=== PATIENT | male | born 1955 | race African-American/Black ===

== ENCOUNTER 2020-05-09 23:09 | Inpatient (IN) | payer OTHER ==
[~2020-05-09] VITALS: Ht 190.5 cm; Wt 68.9 kg
[~2020-05-09 23:09] MED LIST: AMLO10TA80 PO; CEPH250C2 MT; MIRT15TA6 PO; OMEP20CA14 MT; PROP10TA10 MT
[2020-05-09] MEDS ORDERED: PANTOPRAZOLE SODIUM 40 MG/VIAL IV STA (23:25)
[2020-05-09] MEDS ORDERED: PANTOPRAZOLE 80 MG in SODIUM CHLORIDE 0.9% 100 ML IV STA (23:25)
[2020-05-09] MEDS ORDERED: ONDANSETRON HCL 4MG/2ML INJ IV STA (23:25)
[2020-05-09] MEDS ORDERED: OCTREOTIDE ACETATE 50 MCG/ML 1ML IV STA (23:25)
[2020-05-09] MEDS ORDERED: OCTREOTIDE 1,000 MCG in SODIUM CHLORIDE 0.9% 100 ML IV STA (23:25)
[2020-05-09] MEDS ORDERED: SODIUM CHLORIDE 0.9% 1,000 ML IV ONE (23:30)
[2020-05-10] VITALS (33 sets, daily range): BP systolic 99–139; BP diastolic 52–80
[2020-05-10 00:25] LABS: INR 1.2; PROTHROMBIN TIME 12.7 sec (9.6-11.0)
[2020-05-10 00:29] LABS: CHLORIDE 109 mEq/L (98-107)
[2020-05-10] MEDS ORDERED: CEFTRIAXONE 1 G PREMIX 50 ML IV ONE (00:30)
[2020-05-10] MEDS ORDERED: SODIUM CHLORIDE 0.9% 1000ML BAG (SEPSIS BOLUS) IV ONE (00:30)
[2020-05-10] MEDS ORDERED: AZITHROMYCIN 500 MG in DEXT 5% WATER 250 ML IV ONE (00:30)
[2020-05-10 00:33] LABS: ETHANOL BLOOD < 10 mg/dL
[2020-05-10 01:01] LABS: BASOPHILS % 0.7 % (0.0-2.0); EOSINOPHILS % 0.8 % (0.0-5.0); LYMPHOCYTES % 22.7 % (20.0-50.0); MEAN CORPUSCULAR HEMOGLOBIN 23.4 pg (28.0-32.0); MEAN CORPUSCULAR VOLUME 81.7 fL (80.0-94.0); MEAN PLATELET VOLUME 7.9 fl (7.4-10.4); NEUTROPHILS % 64.8 % (40.0-76.0); PLATELET 354 x1000/uL (130-400); RED BLOOD CELL COUNT 1.21 mill/uL (4.7-6.1); RED CELL DISTRIBUTION WIDTH 24.9 % (11.6-14.6)
[2020-05-10 01:04] LABS: HEMOGLOBIN. 2.8 g/dL (14.0-18.0)
[2020-05-10 01:05] LABS: HEMATOCRIT. 9.9 % (42.0-52.0)
[2020-05-10 01:22] LABS: BASOPHILS % 0.2 % (0.0-2.0); EOSINOPHILS % 0.1 % (0.0-5.0); LYMPHOCYTES % 11.7 % (20.0-50.0); MEAN CORPUSCULAR VOLUME 81.1 fL (80.0-94.0); MEAN PLATELET VOLUME 7.1 fl (7.4-10.4); MONOCYTES % 9.8 % (2.0-8.0); NEUTROPHILS % 78.2 % (40.0-76.0); PLATELET 344 x1000/uL (130-400); RED BLOOD CELL COUNT 1.12 mill/uL (4.7-6.1); RED CELL DISTRIBUTION WIDTH 24.6 % (11.6-14.6)
[2020-05-10 01:25] LABS: HEMATOCRIT. 9.1 % (42.0-52.0); HEMOGLOBIN. 2.6 g/dL (14.0-18.0)
[2020-05-10 01:40] LABS: C REACTIVE PROTEIN QUANT 8.1 mg/L (0.0-3.0)
[2020-05-10 02:12] LABS: *AMPHETAMINES SCREEN URINE NEGATIVE (NEGATIVE); *BARBITURATES SCREEN URINE NEGATIVE (NEGATIVE); *BENZODIAZEPINES SCREEN URINE NEGATIVE (NEGATIVE); *COCAINE SCREEN URINE NEGATIVE (NEGATIVE)
[2020-05-10 02:13] LABS: CANNABINOID URINE SCREEN NEGATIVE (NEGATIVE); METHADONE URINE SCREEN NEGATIVE (NEGATIVE); OPIATES URINE SCREEN NEGATIVE (NEGATIVE); PHENCYCLIDINE URINE SCREEN NEGATIVE (NEGATIVE)
[2020-05-10 05:48] LABS: PLATELET ESTIMATE NORMAL
[2020-05-10] MEDS ORDERED: ONDANSETRON HCL 4MG/2ML INJ IV PRN (08:45)
[2020-05-10] MEDS ORDERED: CEFEPIME 1,000 MG in DEXTROSE 5% WATER 50 ML IV SCH (08:45)
[2020-05-10] MEDS ORDERED: METRONIDAZOLE 500 MG PREMIX 100 ML IV SCH (10:00)
[2020-05-10 10:44] LABS: CHLORIDE 112 mEq/L (98-107)
[2020-05-10] MEDS: CEFEPIME 1,000 MG in DEXTROSE 5% WATER 50 ML IV SCH (10:46)
[2020-05-10] MEDS: SODIUM CHLORIDE 0.45% 1,000 ML IV SCH ×2 (10:46→22:17)
[2020-05-10] MEDS ORDERED: THIAMINE HCL 100 MG in SODIUM CHLORIDE 0.9% 49 ML IV SCH (14:45)
[2020-05-10 15:07] LABS: HEMATOCRIT 25.6 % (42.0-52.0); HEMOGLOBIN 8.3 g/dL (14.0-18.0)
[2020-05-10 15:10] LABS: INR 1.1; PROTHROMBIN TIME 11.9 sec (9.6-11.0)
[2020-05-10] MEDS ORDERED: DIPHENHYDRAMINE 50MG/ML VIAL ONE (15:47)
[2020-05-10] MEDS ORDERED: MIDAZOLAM HCL 2 MG/2 ML VIAL ONE ×2 (15:47→16:05)
[2020-05-10] MEDS ORDERED: FENTANYL CITRATE/PF 50MCG/ML 2ML VIAL ONE (15:47)
[2020-05-10 16:36] LABS: CLARITY URINE CLEAR (CLEAR); COLOR URINE YELLOW (YELLOW); KETONES URINE NEGATIVE (NEGATIVE); LEUKOCYTE ESTERASE URINE 2+ (NEGATIVE); NITRITE URINE NEGATIVE (NEGATIVE); OCCULT BLOOD URINE 2+ (NEGATIVE); PH URINE 7.5 (4.5-8.0); PROTEIN URINE NEGATIVE (NEGATIVE); SPECIFIC GRAVITY URINE 1.015 (1.005-1.030); UROBILINOGEN URINE 0.2 E.U./dL (0.2-1.0)
[2020-05-10] MEDS: SUCRALFATE 1 G/10 ML UDC PO SCH (18:47)
[2020-05-10] MEDS: METRONIDAZOLE 500 MG PREMIX 100 ML IV SCH (18:48)
[2020-05-10] MEDS ORDERED: VANCOMYCIN 1250MG in DEXTROSE 5% WATER 250ML IV NR (19:30)
[2020-05-10] MEDS: PANTOPRAZOLE SODIUM 40 MG/VIAL IV SCH (20:01)
[2020-05-11] VITALS (64 sets, daily range): BP systolic 119–156; BP diastolic 60–88
[2020-05-11 00:03] LABS: HEMATOCRIT 26.8 % (42.0-52.0); HEMOGLOBIN 8.5 g/dL (14.0-18.0)
[2020-05-11] MEDS: SUCRALFATE 1 G/10 ML UDC PO SCH ×4 (00:57→17:25)
[2020-05-11] MEDS: METRONIDAZOLE 500 MG PREMIX 100 ML IV SCH ×3 (02:57→17:25)
[2020-05-11 05:17] LABS: CHLORIDE 110 mEq/L (98-107)
[2020-05-11 05:26] LABS: BASOPHILS % 0.5 % (0.0-2.0); EOSINOPHILS % 1.9 % (0.0-5.0); HEMATOCRIT. 26.5 % (42.0-52.0); HEMOGLOBIN. 8.5 g/dL (14.0-18.0); LYMPHOCYTES % 8.8 % (20.0-50.0); MEAN CORPUSCULAR VOLUME 83.6 fL (80.0-94.0); MEAN PLATELET VOLUME 7.1 fl (7.4-10.4); MONOCYTES % 9.4 % (2.0-8.0); NEUTROPHILS % 79.4 % (40.0-76.0); PLATELET 125 x1000/uL (130-400); RED BLOOD CELL COUNT 3.17 mill/uL (4.7-6.1); RED CELL DISTRIBUTION WIDTH 18.8 % (11.6-14.6)
[2020-05-11 05:36] LABS: PHOSPHORUS 2.6 mg/dL (2.5-4.9)
[2020-05-11 05:42] LABS: TOTAL IRON BINDING CAPACITY 350 ug/dL (250-450)
[2020-05-11 06:10] LABS: PROTHROMBIN TIME 11.1 sec (9.6-11.0)
[2020-05-11] MEDS ORDERED: VANCOMYCIN 750 MG PREMIX 150 ML IV SCH (09:00)
[2020-05-11] MEDS: PANTOPRAZOLE SODIUM 40 MG/VIAL IV SCH ×2 (09:15→20:05)
[2020-05-11] MEDS: CEFEPIME 1,000 MG in DEXTROSE 5% WATER 50 ML IV SCH (09:15)
[2020-05-11] MEDS: VANCOMYCIN 1 G PREMIX 200 ML IV SCH ×2 (09:16→20:05)
[2020-05-11] MEDS: SODIUM CHLORIDE 0.45% 1,000 ML IV SCH ×2 (10:57→23:06)
[2020-05-11] MEDS ORDERED: IRON SUCROSE COMPLEX 100 MG/5 ML ML IV SCH (14:30)
[2020-05-11] MEDS ORDERED: THIAMINE HCL 100 MG in SODIUM CHLORIDE 0.9% 49 ML IV SCH (15:30)
[2020-05-11] MEDS: OCTREOTIDE 1,000 MCG in SODIUM CHLORIDE 0.9% 98 ML IV SCH (15:39)
[2020-05-11] MEDS: LINEZOLID 600 MG PREMIX 300 ML IV SCH (22:37)
[2020-05-12] VITALS (9 sets, daily range): BP systolic 117–145; BP diastolic 59–72
[2020-05-12] MEDS: SUCRALFATE 1 G/10 ML UDC PO SCH ×3 (00:07→12:44)
[2020-05-12] MEDS: METRONIDAZOLE 500 MG PREMIX 100 ML IV SCH ×2 (02:04→09:44)
[2020-05-12 06:33] LABS: BASOPHILS % 0.9 % (0.0-2.0); EOSINOPHILS % 4.8 % (0.0-5.0); HEMOGLOBIN. 8.3 g/dL (14.0-18.0); LYMPHOCYTES % 12.7 % (20.0-50.0); MEAN CORPUSCULAR HEMOGLOBIN 27.5 pg (28.0-32.0); MEAN CORPUSCULAR VOLUME 83.1 fL (80.0-94.0); MEAN PLATELET VOLUME 6.6 fl (7.4-10.4); MONOCYTES % 10.9 % (2.0-8.0); NEUTROPHILS % 70.7 % (40.0-76.0); PLATELET 89 x1000/uL (130-400); RED BLOOD CELL COUNT 3.01 mill/uL (4.7-6.1); RED CELL DISTRIBUTION WIDTH 18.4 % (11.6-14.6)
[2020-05-12 06:41] LABS: CHLORIDE 111 mEq/L (98-107)
[2020-05-12] MEDS: LINEZOLID 600 MG PREMIX 300 ML IV SCH (09:13)
[2020-05-12] MEDS: PANTOPRAZOLE SODIUM 40 MG/VIAL IV SCH (09:14)
[2020-05-12] MEDS: CEFEPIME 1,000 MG in DEXTROSE 5% WATER 50 ML IV SCH (09:14)
[2020-05-12] MEDS ORDERED: OMEP20CA14 MT (11:21)
[2020-05-12] MEDS ORDERED: PROP10TA10 MT (11:21)
[2020-05-12] MEDS ORDERED: SUCR1ORA15 PO (11:21)
[2020-05-12] MEDS: OCTREOTIDE 1,000 MCG in SODIUM CHLORIDE 0.9% 98 ML IV SCH (12:17)
== END 2020-05-12 15:15 | disposition home or self-care (01) | DRG 720 ==
LOC: ER 23:09 → MICUSO 05-10 01:19 → EDBEDREQTM 05-10 01:23 → EDBEDREQDT 05-10 01:23 → EDBEDREQ 05-10 01:23 → UNDOADMIN 05-10 04:10 → MICUNO 05-10 04:10 → ENRESERV 05-10 11:18 → 5EST 05-11 23:20
PROVIDERS: ADMIT Internal Medicine; ATTEND Internal Medicine
PROC: 0DB98ZX Excision of Duodenum, Via Natural or Artificial Opening Endoscopic, Diagnostic (ICD-10-PCS; principal; 2020-05-10)
PROC: 0DB78ZX Excision of Stomach, Pylorus, Via Natural or Artificial Opening Endoscopic, Diagnostic (ICD-10-PCS; 2020-05-10)
PROC: 30233N1 Transfusion of Nonautologous Red Blood Cells into Peripheral Vein, Percutaneous Approach (ICD-10-PCS; 2020-05-10)
PROC: 06L38CZ Occlusion of Esophageal Vein with Extraluminal Device, Via Natural or Artificial Opening Endoscopic (ICD-10-PCS; 2020-05-10)
DX: A41.9 Sepsis, unspecified organism (principal); E43 Unspecified severe protein-calorie malnutrition; N17.0 Acute kidney failure with tubular necrosis; K85.90 Acute pancreatitis without necrosis or infection, unspecified; R18.8 Other ascites; R57.8 Other shock; D50.0 Iron deficiency anemia secondary to blood loss (chronic); E87.2 Acidosis; E87.8 Other disorders of electrolyte and fluid balance, not elsewhere classified; K29.70 Gastritis, unspecified, without bleeding; K31.89 Other diseases of stomach and duodenum; K74.60 Unspecified cirrhosis of liver; K76.6 Portal hypertension; J18.9 Pneumonia, unspecified organism; F10.10 Alcohol abuse, uncomplicated; Y90.9 Presence of alcohol in blood, level not specified; Z20.822 Contact with and (suspected) exposure to COVID-19; K76.0 Fatty (change of) liver, not elsewhere classified; K44.9 Diaphragmatic hernia without obstruction or gangrene; N39.0 Urinary tract infection, site not specified; I85.11 Secondary esophageal varices with bleeding; K70.9 Alcoholic liver disease, unspecified; K83.1 Obstruction of bile duct; Z68.1 Body mass index [BMI] 19.9 or less, adult; Z96.642 Presence of left artificial hip joint; Z87.891 Personal history of nicotine dependence
CPT/HCPCS: 36415; 71045; 80048; 80053; 80202; 80305; 80320; 81003; 82140; 82378; 82607; 82728; 82746; 83540; 83550; 83605; 83615; 83735; 83880; 84100; 84145; 84484; 85014; 85018; 85025; 85044; 86140; 86301; 86850; 86900; 86920; 87077; 87186; 87426; 88305; 88313; 93005; 96365; 99291; C9113; J0456; J0692; J0696; J1200; J2020; J2250; J2354; J2405; J3010; J3370; J3411; J3490; J7030; J7050; J7060; P9016; U0003; G0480

== ENCOUNTER 2020-12-29 22:04 | Inpatient (IN) | payer OTHER ==
[~2020-12-29] VITALS: Ht 190.5 cm; Wt 72.6 kg
[~2020-12-29 22:04] MED LIST changes: -CEPH250C2 MT; +MIRT-89 PO; -MIRT15TA6 PO; +SUCR1ORA15 PO
[2020-12-29] MEDS ORDERED: ONDANSETRON HCL 4MG/2ML INJ IV STA (22:20)
[2020-12-29] MEDS ORDERED: SODIUM CHLORIDE 0.9% 1,000 ML IV ONE (22:30)
[2020-12-29 22:58] LABS: BASOPHILS % 0.8 % (0.0-2.0); EOSINOPHILS % 1.7 % (0.0-5.0); LYMPHOCYTES % 19.2 % (20.0-50.0); MEAN CORPUSCULAR HEMOGLOBIN 22.9 pg (28.0-32.0); MEAN CORPUSCULAR VOLUME 75.3 fL (80.0-94.0); MEAN PLATELET VOLUME 6.6 fl (7.4-10.4); MONOCYTES % 10.8 % (2.0-8.0); NEUTROPHILS % 67.5 % (40.0-76.0); PLATELET 266 x1000/uL (130-400); RED BLOOD CELL COUNT 2.47 mill/uL (4.7-6.1); RED CELL DISTRIBUTION WIDTH 27.3 % (11.6-14.6)
[2020-12-29 23:01] LABS: CLARITY URINE CLEAR (CLEAR); COLOR URINE YELLOW (YELLOW); HEMATOCRIT. 18.6 % (42.0-52.0); HEMOGLOBIN. 5.7 g/dL (14.0-18.0); KETONES URINE NEGATIVE (NEGATIVE); LEUKOCYTE ESTERASE URINE 1+ (NEGATIVE); NITRITE URINE NEGATIVE (NEGATIVE); OCCULT BLOOD URINE 1+ (NEGATIVE); PROTEIN URINE NEGATIVE (NEGATIVE); SPECIFIC GRAVITY URINE 1.017 (1.005-1.030)
[2020-12-29 23:03] LABS: CHLORIDE 108 mEq/L (98-107)
[2020-12-29 23:05] LABS: INR 1.1; PROTHROMBIN TIME 11.8 sec (9.6-11.0)
[2020-12-29 23:07] LABS: ETHANOL BLOOD < 10 mg/dL
[2020-12-29 23:10] LABS: *AMPHETAMINES SCREEN URINE NEGATIVE (NEGATIVE); *BARBITURATES SCREEN URINE NEGATIVE (NEGATIVE); *BENZODIAZEPINES SCREEN URINE NEGATIVE (NEGATIVE); *COCAINE SCREEN URINE NEGATIVE (NEGATIVE)
[2020-12-29 23:11] LABS: CANNABINOID URINE SCREEN NEGATIVE (NEGATIVE); METHADONE URINE SCREEN NEGATIVE (NEGATIVE); OPIATES URINE SCREEN NEGATIVE (NEGATIVE); PHENCYCLIDINE URINE SCREEN NEGATIVE (NEGATIVE)
[2020-12-29 23:18] LABS: PLATELET ESTIMATE NORMAL
[2020-12-30] VITALS (27 sets, daily range): BP systolic 101–149; BP diastolic 29–83
[2020-12-30] MEDS ORDERED: PANTOPRAZOLE SODIUM 40 MG/VIAL IV ONE (01:45)
[2020-12-30] MEDS ORDERED: SODIUM CHLORIDE 0.9% 2,000 ML IV NR (03:00)
[2020-12-30] MEDS ORDERED: SODIUM CHLORIDE 0.9% 1,000 ML IV NR (05:15)
[2020-12-30 07:03] LABS: BASOPHILS % 0.3 % (0.0-2.0); EOSINOPHILS % 0.1 % (0.0-5.0); LYMPHOCYTES % 7.1 % (20.0-50.0); MEAN CORPUSCULAR HEMOGLOBIN 26.6 pg (28.0-32.0); MEAN CORPUSCULAR VOLUME 86.3 fL (80.0-94.0); MEAN PLATELET VOLUME 7.2 fl (7.4-10.4); MONOCYTES % 7.9 % (2.0-8.0); NEUTROPHILS % 84.6 % (40.0-76.0); PLATELET 217 x1000/uL (130-400); RED BLOOD CELL COUNT 1.69 mill/uL (4.7-6.1); RED CELL DISTRIBUTION WIDTH 23.1 % (11.6-14.6)
[2020-12-30 07:05] LABS: CHLORIDE 120 mEq/L (98-107)
[2020-12-30 07:10] LABS: HEMATOCRIT. 14.6 % (42.0-52.0); HEMOGLOBIN. 4.5 g/dL (14.0-18.0)
[2020-12-30] MEDS ORDERED: CALCIUM GLUCONATE 100MG/ML 10ML VIAL IV ONE (07:15)
[2020-12-30] MEDS ORDERED: NOREPINEPHRINE 8 MG in DEXT 5% WATER 242 ML IV PRN (08:00)
[2020-12-30] MEDS: NOREPINEPHRINE 8 MG in DEXT 5% WATER 242 ML IV PRN ×2 (08:58→09:13)
[2020-12-30] MEDS ORDERED: OCTREOTIDE 1,000 MCG in SODIUM CHLORIDE 0.9% 100 ML IV SCH ×2 (10:00→10:45)
[2020-12-30] MEDS ORDERED: DEXTROSE 50% WATER 50ML SYRINGE IV PRN ×2 (10:00)
[2020-12-30] MEDS ORDERED: ONDANSETRON HCL 4MG/2ML INJ IV PRN (10:00)
[2020-12-30] MEDS ORDERED: PANTOPRAZOLE SODIUM 40 MG/VIAL IV SCH (11:00)
[2020-12-30] MEDS ORDERED: OCTREOTIDE ACETATE 50 MCG/ML 1ML IV NR (11:00)
[2020-12-30 12:00] LABS: TOTAL IRON BINDING CAPACITY 177 ug/dL (250-450)
[2020-12-30] MEDS: THIAMINE HCL 200 MG in SODIUM CHLORIDE 0.9% 100 ML IV SCH (12:01)
[2020-12-30] MEDS: BLOOD SUGAR DIAGNOSTIC STRIP TEST SCH ×3 (12:05→21:00)
[2020-12-30] MEDS: INSULIN LISPRO 100 UNITS/ML SUBCUT SCH ×3 (12:06→21:00)
[2020-12-30 12:29] LABS: VITAMIN B12 SERUM 283 pg/mL (211-911)
[2020-12-30 12:39] LABS: FERRITIN < 5 ng/mL (22-322)
[2020-12-30] MEDS: MORPHINE SULFATE 2 MG/ML CPJ (NOT FOR IM USE) IV PRN ×2 (15:13→20:16)
[2020-12-30] MEDS: PANTOPRAZOLE SODIUM 40 MG/VIAL IV SCH (17:13)
[2020-12-30 19:41] LABS: HEMATOCRIT. 25.3 % (42.0-52.0); HEMOGLOBIN. 8.2 g/dL (14.0-18.0); MEAN CORPUSCULAR HEMOGLOBIN 27.8 pg (28.0-32.0); MEAN CORPUSCULAR VOLUME 85.3 fL (80.0-94.0); MEAN PLATELET VOLUME 7.2 fl (7.4-10.4); PLATELET 184 x1000/uL (130-400); RED BLOOD CELL COUNT 2.96 mill/uL (4.7-6.1); RED CELL DISTRIBUTION WIDTH 16.2 % (11.6-14.6)
[2020-12-30 20:27] LABS: PLATELET ESTIMATE NORMAL
[2020-12-30] MEDS ORDERED: CEFTRIAXONE 1 G PREMIX 50 ML IV SCH (21:15)
[2020-12-30 22:19] LABS: CHLORIDE 120 mEq/L (98-107)
[2020-12-30] MEDS ORDERED: CEFTRIAXONE 1,000 MG in DEXTROSE 5% WATER 50 ML IV SCH (22:30)
[2020-12-31] VITALS (29 sets, daily range): BP systolic 98–133; BP diastolic 53–81
[2020-12-31] MEDS: MORPHINE SULFATE 2 MG/ML CPJ (NOT FOR IM USE) IV PRN (02:06)
[2020-12-31 06:32] LABS: HEMATOCRIT. 23.5 % (42.0-52.0); HEMOGLOBIN. 7.6 g/dL (14.0-18.0); MEAN CORPUSCULAR VOLUME 86.8 fL (80.0-94.0); MEAN PLATELET VOLUME 7.5 fl (7.4-10.4); PLATELET 160 x1000/uL (130-400); RED CELL DISTRIBUTION WIDTH 16.8 % (11.6-14.6)
[2020-12-31 06:40] LABS: PHOSPHORUS 3.9 mg/dL (2.5-4.9)
[2020-12-31] MEDS: INSULIN LISPRO 100 UNITS/ML SUBCUT SCH ×4 (06:40→21:00)
[2020-12-31] MEDS: BLOOD SUGAR DIAGNOSTIC STRIP TEST SCH ×4 (06:40→21:32)
[2020-12-31 06:41] LABS: T4 FREE 0.87 ng/dL (0.76-1.46)
[2020-12-31 07:19] LABS: INR 1.1; PROTHROMBIN TIME 12.1 sec (9.6-11.0)
[2020-12-31] MEDS: PANTOPRAZOLE SODIUM 40 MG/VIAL IV SCH ×2 (08:31→19:20)
[2020-12-31] MEDS ORDERED: SODIUM POLYSTYRENE SULFONATE 15 G/60 ML BOT PO ONE (11:15)
[2020-12-31] MEDS ORDERED: ALBUTEROL (0.083%) 2.5MG/3ML NEB HHN NR (11:15)
[2020-12-31] MEDS ORDERED: ETOMIDATE 2MG/ML 10ML VIAL IV ONE (11:28)
[2020-12-31] MEDS ORDERED: MIDAZOLAM HCL 2 MG/2 ML VIAL ONE (11:28)
[2020-12-31] MEDS ORDERED: PROPOFOL 200MG/20ML VIAL IV ONE (11:29)
[2020-12-31] MEDS ORDERED: LIDOCAINE HCL/PF 1% 10 MG/ML 5ML VIAL ONE (11:31)
[2020-12-31] MEDS: DEXTROSE 5% WATER 1,000 ML IV SCH (12:08)
[2020-12-31] MEDS: THIAMINE HCL 200 MG in SODIUM CHLORIDE 0.9% 100 ML IV SCH (12:09)
[2020-12-31] MEDS ORDERED: SODIUM POLYSTYRENE SULFONATE 15 G/60 ML BOT PO NR ×2 (13:00)
[2020-12-31] MEDS ORDERED: MAGNESIUM 1 G PREMIX 100 ML IV SCH (13:00)
[2020-12-31] MEDS ORDERED: VANCOMYCIN 1500MG in DEXTROSE 5% WATER 250ML IV SCH (13:00)
[2020-12-31] MEDS: PIPERACILLIN/TAZOBACTAM 3.375 G in DEXTROSE 5% WATER 50 ML IV SCH ×2 (13:49→22:43)
[2020-12-31] MEDS: SUCRALFATE 1G TABLET PO SCH ×3 (13:49→21:32)
[2020-12-31] MEDS: CITRIC ACID/SODIUM CITRATE SOLN 30ML UDC PO SCH ×2 (13:49→19:20)
[2020-12-31 17:35] LABS: HEMATOCRIT 22.8 % (42.0-52.0); HEMOGLOBIN 7.1 g/dL (14.0-18.0); MEAN CORPUSCULAR HEMOGLOBIN 27.7 pg (28.0-32.0); MEAN CORPUSCULAR VOLUME 88.4 fL (80.0-94.0); PLATELET 155 x1000/uL (130-400); RED BLOOD CELL COUNT 2.57 mill/uL (4.7-6.1); RED CELL DISTRIBUTION WIDTH 17.3 % (11.6-14.6)
[2020-12-31 17:48] LABS: CHLORIDE 124 mEq/L (98-107)
[2020-12-31 17:53] LABS: AMYLASE 92 IU/L (25-115)
[2020-12-31 17:56] LABS: CREATINE KINASE 411 IU/L (39-308)
[2021-01-01] VITALS: BP 120/60
[2021-01-01 01:25] LABS: PLATELET ESTIMATE NORMAL
[2021-01-01 02:29] LABS: HEMATOCRIT 25.1 % (42.0-52.0); HEMOGLOBIN 8.3 g/dL (14.0-18.0)
[2021-01-01 04:00] VITALS: BP 108/56
[2021-01-01] MEDS: DEXTROSE 5% WATER 1,000 ML IV SCH ×2 (04:36→20:35)
[2021-01-01] MEDS: PIPERACILLIN/TAZOBACTAM 3.375 G in DEXTROSE 5% WATER 50 ML IV SCH ×3 (05:36→21:26)
[2021-01-01 05:42] LABS: BASOPHILS % 0.6 % (0.0-2.0); EOSINOPHILS % 1.7 % (0.0-5.0); HEMATOCRIT. 24.2 % (42.0-52.0); HEMOGLOBIN. 8.1 g/dL (14.0-18.0); LYMPHOCYTES % 7.1 % (20.0-50.0); MEAN CORPUSCULAR HEMOGLOBIN 29.2 pg (28.0-32.0); MEAN CORPUSCULAR VOLUME 87.3 fL (80.0-94.0); MEAN PLATELET VOLUME 7.2 fl (7.4-10.4); MONOCYTES % 8.4 % (2.0-8.0); NEUTROPHILS % 82.2 % (40.0-76.0); PLATELET 100 x1000/uL (130-400); RED BLOOD CELL COUNT 2.77 mill/uL (4.7-6.1); RED CELL DISTRIBUTION WIDTH 16.2 % (11.6-14.6)
[2021-01-01] MEDS: BLOOD SUGAR DIAGNOSTIC STRIP TEST SCH ×4 (06:53→21:23)
[2021-01-01] MEDS: INSULIN LISPRO 100 UNITS/ML SUBCUT SCH ×4 (06:53→21:00)
[2021-01-01 08:00] VITALS: BP 115/58
[2021-01-01] MEDS: CITRIC ACID/SODIUM CITRATE SOLN 30ML UDC PO SCH ×3 (10:17→17:22)
[2021-01-01] MEDS: PANTOPRAZOLE SODIUM 40 MG/VIAL IV SCH ×2 (10:17→17:00)
[2021-01-01] MEDS: VANCOMYCIN 1 G PREMIX 200 ML IV SCH (10:19)
[2021-01-01] MEDS: SUCRALFATE 1G TABLET PO SCH ×4 (10:21→21:26)
[2021-01-01 12:00] VITALS: BP 99/60
[2021-01-01] MEDS: THIAMINE HCL 200 MG in SODIUM CHLORIDE 0.9% 100 ML IV SCH (12:22)
[2021-01-01 16:00] VITALS: BP 125/62
[2021-01-01 20:00] VITALS: BP 124/60
[2021-01-02] VITALS: BP 109/55
[2021-01-02 04:00] VITALS: BP 131/60
[2021-01-02] MEDS: PIPERACILLIN/TAZOBACTAM 3.375 G in DEXTROSE 5% WATER 50 ML IV SCH (05:34)
[2021-01-02] MEDS: BLOOD SUGAR DIAGNOSTIC STRIP TEST SCH ×4 (07:22→21:37)
[2021-01-02] MEDS: INSULIN LISPRO 100 UNITS/ML SUBCUT SCH ×4 (07:50→21:00)
[2021-01-02 08:00] VITALS: BP 106/53
[2021-01-02] MEDS: CITRIC ACID/SODIUM CITRATE SOLN 30ML UDC PO SCH ×3 (09:18→16:22)
[2021-01-02] MEDS: VANCOMYCIN 1 G PREMIX 200 ML IV SCH (09:18)
[2021-01-02] MEDS: SUCRALFATE 1G TABLET PO SCH ×4 (09:18→21:38)
[2021-01-02] MEDS: PANTOPRAZOLE SODIUM 40 MG/VIAL IV SCH ×2 (09:18→16:22)
[2021-01-02 12:00] VITALS: BP 115/62
[2021-01-02] MEDS: DEXTROSE 5% WATER 1,000 ML IV SCH (13:55)
[2021-01-02] MEDS: THIAMINE HCL 200 MG in SODIUM CHLORIDE 0.9% 100 ML IV SCH (13:55)
[2021-01-02 16:00] VITALS: BP 133/60
[2021-01-02] MEDS: CEFTRIAXONE 2 G in DEXTROSE 5% WATER 50 ML IV SCH (16:22)
[2021-01-02 20:00] VITALS: BP 123/57
[2021-01-02] MEDS ORDERED: VANCOMYCIN 1 G PREMIX 200 ML IV SCH (21:00)
[2021-01-03] VITALS: BP 142/61
[2021-01-03 04:20] VITALS: BP 128/61
[2021-01-03] MEDS: DEXTROSE 5% WATER 1,000 ML IV SCH (06:29)
[2021-01-03 06:31] LABS: CHLORIDE 115 mEq/L (98-107)
[2021-01-03] MEDS: INSULIN LISPRO 100 UNITS/ML SUBCUT SCH ×2 (06:55→12:40)
[2021-01-03] MEDS: BLOOD SUGAR DIAGNOSTIC STRIP TEST SCH ×3 (06:58→17:25)
[2021-01-03 08:00] VITALS: BP 124/62
[2021-01-03 08:07] LABS: ANTI-NUCLEAR ANTIBODIES DIRECT Negative (Negative)
[2021-01-03] MEDS: CITRIC ACID/SODIUM CITRATE SOLN 30ML UDC PO SCH ×3 (09:05→17:25)
[2021-01-03] MEDS: PANTOPRAZOLE SODIUM 40 MG/VIAL IV SCH ×2 (09:06→17:25)
[2021-01-03] MEDS: SUCRALFATE 1G TABLET PO SCH ×3 (09:06→17:25)
[2021-01-03 12:08] VITALS: BP 128/66
[2021-01-03] MEDS: THIAMINE HCL 200 MG in SODIUM CHLORIDE 0.9% 100 ML IV SCH (12:41)
[2021-01-03] MEDS ORDERED: CITR473S PO (13:50)
[2021-01-03] MEDS ORDERED: LEVO750T46 MT (15:02)
[2021-01-03] MEDS: CEFTRIAXONE 2 G in DEXTROSE 5% WATER 50 ML IV SCH (15:50)
[2021-01-03 16:05] VITALS: BP 140/70
[2021-01-03 16:59] VITALS: BP 140/70
== END 2021-01-03 18:20 | disposition home or self-care (01) | DRG 720 ==
LOC: ER 22:04 → MICUNO 12-30 00:44 → CANRESERV 12-30 07:13 → ENRESERV 12-30 07:13 → EDBEDREQSVC 12-30 08:03 → ENRESERV 12-30 13:45 → 6WST 12-31 14:45
PROVIDERS: ADMIT Internal Medicine; ATTEND Internal Medicine
PROC: 30233N1 Transfusion of Nonautologous Red Blood Cells into Peripheral Vein, Percutaneous Approach (ICD-10-PCS; 2020-12-30)
PROC: 0DB78ZX Excision of Stomach, Pylorus, Via Natural or Artificial Opening Endoscopic, Diagnostic (ICD-10-PCS; principal; 2020-12-31)
DX: A41.51 Sepsis due to Escherichia coli [E. coli] (principal); N17.0 Acute kidney failure with tubular necrosis; R57.8 Other shock; E43 Unspecified severe protein-calorie malnutrition; K22.11 Ulcer of esophagus with bleeding; K26.4 Chronic or unspecified duodenal ulcer with hemorrhage; Q25.72 Congenital pulmonary arteriovenous malformation; K29.71 Gastritis, unspecified, with bleeding; E87.0 Hyperosmolality and hypernatremia; K70.31 Alcoholic cirrhosis of liver with ascites; K76.6 Portal hypertension; D64.9 Anemia, unspecified; E83.42 Hypomagnesemia; E87.5 Hyperkalemia; E87.8 Other disorders of electrolyte and fluid balance, not elsewhere classified; F10.10 Alcohol abuse, uncomplicated; I10 Essential (primary) hypertension; K31.89 Other diseases of stomach and duodenum; K44.9 Diaphragmatic hernia without obstruction or gangrene; K57.30 Diverticulosis of large intestine without perforation or abscess without bleeding; K76.0 Fatty (change of) liver, not elsewhere classified; K83.8 Other specified diseases of biliary tract; K86.1 Other chronic pancreatitis; N39.0 Urinary tract infection, site not specified; Z96.643 Presence of artificial hip joint, bilateral; R11.2 Nausea with vomiting, unspecified; Y90.9 Presence of alcohol in blood, level not specified; Z20.822 Contact with and (suspected) exposure to COVID-19; I85.00 Esophageal varices without bleeding; Z87.19 Personal history of other diseases of the digestive system; Z79.899 Other long term (current) drug therapy; Z68.20 Body mass index [BMI] 20.0-20.9, adult
CPT/HCPCS: 36415; 71045; 74176; 74181; 76770; 80048; 80053; 80061; 80076; 80202; 80305; 80320; 81003; 82105; 82140; 82150; 82378; 82550; 82607; 82728; 82746; 82962; 83036; 83540; 83550; 83735; 84100; 84132; 84145; 84439; 84443; 85014; 85018; 85025; 85027; 85044; 86038; 86160; 86301; 86850; 86900; 86920; 87077; 87186; 87426; 88305; 88312; 88313; 93970; 94640; 99291; C9113; J0610; J0696; J2250; J2270; J2354; J2405; J2543; J2704; J3370; J3411; J3475; J3490; J7030; J7040; J7050; J7060; J7070; P9016; G0480

== ENCOUNTER 2021-03-23 11:40 | Inpatient (IN) | payer OTHER ==
[~2021-03-23] VITALS: Ht 188 cm; Wt 52.6 kg
[~2021-03-23 11:40] MED LIST changes: -AMLO10TA80 PO; +CITR473S PO; +LEVO750T46 MT
[2021-03-23 12:50] LABS: MEAN CORPUSCULAR HEMOGLOBIN 20.4 pg (28.0-32.0); MEAN CORPUSCULAR VOLUME 72.4 fL (80.0-94.0); MEAN PLATELET VOLUME 7.8 fl (7.4-10.4); PLATELET 338 x1000/uL (130-400); RED BLOOD CELL COUNT 2.63 mill/uL (4.7-6.1); RED CELL DISTRIBUTION WIDTH 33.1 % (11.6-14.6)
[2021-03-23 12:55] LABS: CHLORIDE 112 mEq/L (98-107)
[2021-03-23 13:21] LABS: HEMOGLOBIN. 5.4 g/dL (14.0-18.0)
[2021-03-23 14:19] LABS: NUCLEATED RED BLOOD CELLS 6 /100 WBC
[2021-03-23 14:20] LABS: PLATELET ESTIMATE NORMAL
[2021-03-24] VITALS (9 sets, daily range): BP systolic 114–139; BP diastolic 49–66
[2021-03-24] MEDS ORDERED: IPRATROPIUM/ALBUTEROL 0.5-3(2.5)MG/3ML NEB HHN PRN (10:00)
[2021-03-24] MEDS ORDERED: ONDANSETRON HCL 4MG/2ML INJ IV PRN (10:00)
[2021-03-24] MEDS ORDERED: CLONIDINE 0.1MG TABLET PO PRN (10:00)
[2021-03-24] MEDS ORDERED: DOCUSATE SODIUM 100MG CAPSULE PO PRN (10:00)
[2021-03-24] MEDS ORDERED: MAGNESIUM/ALUMINUM HYDROXIDE/SIMETHICONE 30ML UDC PO PRN (10:00)
[2021-03-24] MEDS ORDERED: ACETAMINOPHEN 325MG TABLET PO PRN (10:00)
[2021-03-24] MEDS ORDERED: NALOXONE HCL 0.4MG/ML VIAL IV PRN (10:15)
[2021-03-24] MEDS: SUCRALFATE 1 G/10 ML UDC PO SCH ×4 (11:40→20:18)
[2021-03-24] MEDS ORDERED: INFLUENZA VACCINE 05/PF 0.5 ML SYRINGE IM ONE (14:00)
[2021-03-24] MEDS ORDERED: PNEUMOCOCCAL 23-VAL P-SAC VAC 0.5 ML IM ONE (14:00)
[2021-03-24] MEDS ORDERED: TAMS-11 MT (16:01)
[2021-03-24] MEDS ORDERED: AMLO-337 MT (16:01)
[2021-03-24 16:41] LABS: HEMATOCRIT. 21.8 % (42.0-52.0); MEAN CORPUSCULAR HEMOGLOBIN 22.7 pg (28.0-32.0); MEAN CORPUSCULAR VOLUME 75.9 fL (80.0-94.0); MEAN PLATELET VOLUME 8.2 fl (7.4-10.4); PLATELET 394 x1000/uL (130-400); RED BLOOD CELL COUNT 2.87 mill/uL (4.7-6.1); RED CELL DISTRIBUTION WIDTH 34.1 % (11.6-14.6)
[2021-03-24 16:44] LABS: HEMOGLOBIN. 6.5 g/dL (14.0-18.0)
[2021-03-24 16:53] LABS: CHLORIDE 114 mEq/L (98-107)
[2021-03-24 16:58] LABS: TOTAL IRON BINDING CAPACITY 372 ug/dL (250-450)
[2021-03-24 17:23] LABS: VITAMIN B12 SERUM 480 pg/mL (211-911)
[2021-03-24 17:39] LABS: NUCLEATED RED BLOOD CELLS 1 /100 WBC; PLATELET ESTIMATE NORMAL
[2021-03-24 17:48] LABS: FERRITIN 6 ng/mL (22-322)
[2021-03-24] MEDS: PANTOPRAZOLE SODIUM 40 MG/VIAL IV SCH (18:16)
[2021-03-24 18:41] LABS: PROTHROMBIN TIME 11.1 sec (9.6-11.0)
[2021-03-24] MEDS: MIRTAZAPINE 15MG TABLET PO SCH (20:18)
[2021-03-24] MEDS: HYDROCODONE/ACETAMINOPHEN 5/325MG TABLET PO PRN (20:19)
[2021-03-25] VITALS: BP 104/65
[2021-03-25 00:07] LABS: MEAN CORPUSCULAR HEMOGLOBIN 24.3 pg (28.0-32.0); MEAN CORPUSCULAR VOLUME 78.5 fL (80.0-94.0); PLATELET 448 x1000/uL (130-400); RED BLOOD CELL COUNT 3.69 mill/uL (4.7-6.1); RED CELL DISTRIBUTION WIDTH 30.9 % (11.6-14.6)
[2021-03-25] MEDS: HYDROCODONE/ACETAMINOPHEN 5/325MG TABLET PO PRN (00:46)
[2021-03-25 04:00] VITALS: BP 134/59
[2021-03-25] MEDS: SUCRALFATE 1 G/10 ML UDC PO SCH ×4 (06:40→21:06)
[2021-03-25 08:00] VITALS: BP 127/82
[2021-03-25 08:38] LABS: BASOPHILS % 0.4 % (0.0-2.0); EOSINOPHILS % 2.4 % (0.0-5.0); HEMOGLOBIN. 9.3 g/dL (14.0-18.0); LYMPHOCYTES % 12.9 % (20.0-50.0); MEAN CORPUSCULAR HEMOGLOBIN 24.9 pg (28.0-32.0); MEAN CORPUSCULAR VOLUME 77.5 fL (80.0-94.0); MEAN PLATELET VOLUME 7.4 fl (7.4-10.4); MONOCYTES % 8.4 % (2.0-8.0); NEUTROPHILS % 75.9 % (40.0-76.0); PLATELET 489 x1000/uL (130-400); RED BLOOD CELL COUNT 3.74 mill/uL (4.7-6.1); RED CELL DISTRIBUTION WIDTH 31.4 % (11.6-14.6)
[2021-03-25 08:55] LABS: CHLORIDE 113 mEq/L (98-107)
[2021-03-25] MEDS: PANTOPRAZOLE SODIUM 40 MG/VIAL IV SCH ×2 (08:59→16:20)
[2021-03-25] MEDS: TAMSULOSIN HCL 0.4MG SR CAPSULE PO SCH (08:59)
[2021-03-25] MEDS: PROPRANOLOL HCL 10MG TABLET PO SCH ×2 (09:00→16:20)
[2021-03-25] MEDS: AMLODIPINE 5MG TABLET PO SCH (09:00)
[2021-03-25] MEDS ORDERED: CITRIC ACID/SODIUM CITRATE SOLN 15ML UDC PO SCH (09:00)
[2021-03-25 09:11] LABS: PHOSPHORUS 2.8 mg/dL (2.5-4.9)
[2021-03-25] MEDS ORDERED: LORAZEPAM 2MG/ML CPJ IV PRN (10:45)
[2021-03-25] MEDS: THIAMINE HCL 100MG TABLET PO SCH (11:56)
[2021-03-25] MEDS: FOLIC ACID 1MG TABLET PO SCH (11:56)
[2021-03-25] MEDS: FERROUS SULFATE 325MG TABLET PO SCH ×2 (11:56→16:21)
[2021-03-25] MEDS: ASCORBIC ACID 500 MG TABLET PO SCH (11:56)
[2021-03-25 12:00] VITALS: BP 109/58
[2021-03-25] MEDS: CITRIC ACID/SODIUM CITRATE SOLN 30ML UDC PO SCH ×2 (14:12→16:20)
[2021-03-25 16:00] VITALS: BP 109/56
[2021-03-25 20:00] VITALS: BP 111/63
[2021-03-25] MEDS: MIRTAZAPINE 15MG TABLET PO SCH (21:07)
[2021-03-26] VITALS: BP 117/61
[2021-03-26 04:00] VITALS: BP 121/64
[2021-03-26] MEDS: SUCRALFATE 1 G/10 ML UDC PO SCH ×3 (05:49→16:04)
[2021-03-26 07:05] LABS: BASOPHILS % 0.2 % (0.0-2.0); EOSINOPHILS % 2.5 % (0.0-5.0); HEMATOCRIT. 29.2 % (42.0-52.0); MEAN CORPUSCULAR HEMOGLOBIN 24.4 pg (28.0-32.0); MEAN CORPUSCULAR VOLUME 78.7 fL (80.0-94.0); MEAN PLATELET VOLUME 7.2 fl (7.4-10.4); MONOCYTES % 9.6 % (2.0-8.0); NEUTROPHILS % 74.7 % (40.0-76.0); PLATELET 602 x1000/uL (130-400); RED BLOOD CELL COUNT 3.71 mill/uL (4.7-6.1); RED CELL DISTRIBUTION WIDTH 32.4 % (11.6-14.6)
[2021-03-26 07:23] LABS: CHLORIDE 111 mEq/L (98-107)
[2021-03-26 08:00] VITALS: BP 128/64
[2021-03-26] MEDS: PANTOPRAZOLE SODIUM 40 MG/VIAL IV SCH ×2 (10:04→16:04)
[2021-03-26] MEDS: AMLODIPINE 5MG TABLET PO SCH (10:05)
[2021-03-26] MEDS: CITRIC ACID/SODIUM CITRATE SOLN 30ML UDC PO SCH ×3 (10:05→16:04)
[2021-03-26] MEDS: THIAMINE HCL 100MG TABLET PO SCH (10:05)
[2021-03-26] MEDS: ASCORBIC ACID 500 MG TABLET PO SCH (10:05)
[2021-03-26] MEDS: FERROUS SULFATE 325MG TABLET PO SCH ×2 (10:06→16:04)
[2021-03-26] MEDS: FOLIC ACID 1MG TABLET PO SCH (10:06)
[2021-03-26] MEDS: PROPRANOLOL HCL 10MG TABLET PO SCH ×2 (10:06→16:05)
[2021-03-26] MEDS: TAMSULOSIN HCL 0.4MG SR CAPSULE PO SCH (10:06)
[2021-03-26] MEDS ORDERED: CITR473S PO (12:35)
[2021-03-26] MEDS ORDERED: SUCR1ORA15 PO (12:35)
[2021-03-26 13:19] VITALS: BP 116/66
== END 2021-03-26 16:40 | disposition home or self-care (01) | DRG 241 ==
LOC: ER 11:40 → MICUSO 15:10 → EDBEDREQSVC 03-24 00:06 → 7EST 03-24 10:09
PROVIDERS: ADMIT Internal Medicine; ATTEND Internal Medicine
PROC: 30233N1 Transfusion of Nonautologous Red Blood Cells into Peripheral Vein, Percutaneous Approach (ICD-10-PCS; principal; 2021-03-24)
DX: K26.4 Chronic or unspecified duodenal ulcer with hemorrhage (principal); N17.0 Acute kidney failure with tubular necrosis; U07.1 COVID-19; E43 Unspecified severe protein-calorie malnutrition; K76.6 Portal hypertension; K70.30 Alcoholic cirrhosis of liver without ascites; D62 Acute posthemorrhagic anemia; I12.9 Hypertensive chronic kidney disease with stage 1 through stage 4 chronic kidney disease, or unspecified chronic kidney disease; N18.9 Chronic kidney disease, unspecified; R53.82 Chronic fatigue, unspecified; K86.1 Other chronic pancreatitis; F10.10 Alcohol abuse, uncomplicated; Y90.9 Presence of alcohol in blood, level not specified; K44.9 Diaphragmatic hernia without obstruction or gangrene; K31.9 Disease of stomach and duodenum, unspecified; Z87.11 Personal history of peptic ulcer disease; Z87.19 Personal history of other diseases of the digestive system; Z79.899 Other long term (current) drug therapy
CPT/HCPCS: 36415; 71045; 80048; 80053; 80076; 82140; 82248; 82607; 82728; 83540; 83550; 83735; 84100; 85025; 85027; 85044; 85384; 86850; 86900; 86920; 87426; 90732; 93005; 93970; 99285; C9113; J7040; P9016

== ENCOUNTER 2022-06-27 11:05 | Emergency (ER) | payer MEDICARE, MEDICAID ==
[~2022-06-27] VITALS: Ht 188 cm; Wt 62.0 kg
[~2022-06-27 11:05] MED LIST changes: +AMLO-337 MT; -LEVO750T46 MT; +TAMS-11 MT
[2022-06-27] MEDS ORDERED: IBUPROFEN 600MG TABLET PO STA (14:17)
[2022-06-27] MEDS ORDERED: ACET-2708 PO (14:21)
[2022-06-27] MEDS ORDERED: GABA-532 PO (14:21)
[2022-06-27 14:54] VITALS: BP 129/48
== END 2022-06-27 14:59 | disposition home or self-care (01) ==
LOC: ER 11:05
DX: M54.32 Sciatica, left side (principal); I10 Essential (primary) hypertension
CPT/HCPCS: 72110; 93971; 99284

== ENCOUNTER 2022-07-06 21:22 | Inpatient (IN) | payer MEDICARE, MEDICAID ==
[~2022-07-06] VITALS: Ht 188 cm; Wt 57.7 kg
[~2022-07-06 21:22] MED LIST changes: +ACET-2708 PO; +GABA-532 PO
[2022-07-06] MEDS ORDERED: SODIUM CHLORIDE 0.9% 1,000 ML IV ONE (22:15)
[2022-07-06 22:45] LABS: BASOPHILS % 0.3 % (0.0-2.0); EOSINOPHILS % 0.5 % (0.0-5.0); LYMPHOCYTES % 13.1 % (20.0-50.0); MEAN CORPUSCULAR HEMOGLOBIN 21.2 pg (28.0-32.0); MEAN CORPUSCULAR VOLUME 76.8 fL (80.0-94.0); MEAN PLATELET VOLUME 7.4 fl (7.4-10.4); MONOCYTES % 10.9 % (2.0-8.0); NEUTROPHILS % 75.2 % (40.0-76.0); PLATELET 583 x1000/uL (130-400); RED CELL DISTRIBUTION WIDTH 19.9 % (11.6-14.6)
[2022-07-06 22:49] LABS: HEMOGLOBIN. 3.2 g/dL (14.0-18.0)
[2022-07-06 22:50] LABS: HEMATOCRIT. 11.5 % (42.0-52.0)
[2022-07-06 22:53] LABS: CHLORIDE 110 mEq/L (98-107)
[2022-07-06 22:59] LABS: ETHANOL BLOOD < 10 mg/dL
[2022-07-06] MEDS ORDERED: PANTOPRAZOLE SODIUM 40 MG/VIAL IV ONE (23:00)
[2022-07-06] MEDS ORDERED: PANTOPRAZOLE 80 MG in SODIUM CHLORIDE 0.9% 100 ML IV NR (23:45)
[2022-07-07] MEDS ORDERED: PANTOPRAZOLE 80 MG in SODIUM CHLORIDE 0.9% 100 ML IV NR ×2
[2022-07-07 00:02] LABS: INR 1.1; PARTIAL THROMBOPLASTIN TIME 23.8 sec (23.4-31.0); PROTHROMBIN TIME 11.8 sec (9.6-11.0)
[2022-07-07 11:09] VITALS: BP 122/47
[2022-07-07 11:34] VITALS: BP 115/54
[2022-07-07] MEDS ORDERED: ACETAMINOPHEN 325MG TABLET PO PRN (14:15)
[2022-07-07] MEDS ORDERED: ONDANSETRON HCL 4MG/2ML INJ IV PRN (14:15)
[2022-07-07] MEDS ORDERED: MORPHINE SULFATE 2 MG/ML CPJ (NOT FOR IM USE) IV PRN (14:30)
[2022-07-07 15:30] LABS: CLARITY URINE CLEAR (CLEAR); COLOR URINE YELLOW (YELLOW); KETONES URINE TRACE (NEGATIVE); LEUKOCYTE ESTERASE URINE 2+ (NEGATIVE); NITRITE URINE NEGATIVE (NEGATIVE); OCCULT BLOOD URINE 2+ (NEGATIVE); PH URINE 6.5 (4.5-8.0); PROTEIN URINE NEGATIVE (NEGATIVE); UROBILINOGEN URINE 0.2 E.U./dL (0.2-1.0)
[2022-07-07 15:36] VITALS: BP 120/57
[2022-07-07] MEDS: SODIUM CHLORIDE 0.9% 1,000 ML IV SCH (15:47)
[2022-07-07 15:53] LABS: *AMPHETAMINES SCREEN URINE NEGATIVE (NEGATIVE); *BARBITURATES SCREEN URINE NEGATIVE (NEGATIVE); *BENZODIAZEPINES SCREEN URINE NEGATIVE (NEGATIVE); *COCAINE SCREEN URINE NEGATIVE (NEGATIVE); CANNABINOID URINE SCREEN NEGATIVE (NEGATIVE); METHADONE URINE SCREEN NEGATIVE (NEGATIVE); OPIATES URINE SCREEN NEGATIVE (NEGATIVE); PHENCYCLIDINE URINE SCREEN NEGATIVE (NEGATIVE)
[2022-07-07] MEDS ORDERED: NALOXONE HCL 0.4MG/ML VIAL IV PRN (16:00)
[2022-07-07] MEDS: OCTREOTIDE 1,000 MCG in SODIUM CHLORIDE 0.9% 98 ML IV SCH (17:24)
[2022-07-07] MEDS: PROPRANOLOL HCL 10MG TABLET PO SCH (17:25)
[2022-07-07] MEDS: GABAPENTIN 300MG CAPSULE PO SCH (17:25)
[2022-07-07] MEDS: CITRIC ACID/SODIUM CITRATE SOLN 30ML UDC PO SCH (17:25)
[2022-07-07] MEDS: SUCRALFATE 1 G/10 ML UDC PO SCH ×2 (17:25→23:49)
[2022-07-07] MEDS: PANTOPRAZOLE SODIUM 40 MG/VIAL IV SCH (17:26)
[2022-07-07 18:29] LABS: CHLORIDE 112 mEq/L (98-107)
[2022-07-07 20:00] VITALS: BP 111/54
[2022-07-07] MEDS: MIRTAZAPINE 15MG TABLET PO SCH (20:20)
[2022-07-08] VITALS (11 sets, daily range): BP systolic 100–146; BP diastolic 61–79
[2022-07-08 00:01] LABS: MEAN CORPUSCULAR HEMOGLOBIN 27.6 pg (28.0-32.0); MEAN CORPUSCULAR VOLUME 82.2 fL (80.0-94.0); MEAN PLATELET VOLUME 7.2 fl (7.4-10.4); PLATELET 246 x1000/uL (130-400); RED CELL DISTRIBUTION WIDTH 19.7 % (11.6-14.6)
[2022-07-08 00:41] LABS: HEMATOCRIT. 20.6 % (42.0-52.0)
[2022-07-08 00:42] LABS: HEMOGLOBIN. 6.9 g/dL (14.0-18.0)
[2022-07-08] MEDS: PANTOPRAZOLE SODIUM 40 MG/VIAL IV SCH ×2 (03:40→18:18)
[2022-07-08] MEDS: SUCRALFATE 1 G/10 ML UDC PO SCH ×3 (05:12→18:17)
[2022-07-08] MEDS: SODIUM CHLORIDE 0.9% 1,000 ML IV SCH ×2 (06:30→22:15)
[2022-07-08] MEDS: CITRIC ACID/SODIUM CITRATE SOLN 30ML UDC PO SCH ×3 (10:15→18:17)
[2022-07-08] MEDS: TAMSULOSIN HCL 0.4MG SR CAPSULE PO SCH (10:16)
[2022-07-08] MEDS: GABAPENTIN 300MG CAPSULE PO SCH ×2 (10:16→18:18)
[2022-07-08] MEDS: PROPRANOLOL HCL 10MG TABLET PO SCH ×2 (10:18→18:18)
[2022-07-08 11:57] LABS: NUCLEATED RED BLOOD CELLS 1 /100 WBC
[2022-07-08 11:59] LABS: PLATELET ESTIMATE NORMAL
[2022-07-08] MEDS: OCTREOTIDE 1,000 MCG in SODIUM CHLORIDE 0.9% 98 ML IV SCH (13:21)
[2022-07-08 16:41] LABS: HEMATOCRIT. 27.8 % (42.0-52.0); HEMOGLOBIN. 9.2 g/dL (14.0-18.0); MEAN CORPUSCULAR HEMOGLOBIN 27.6 pg (28.0-32.0); MEAN CORPUSCULAR VOLUME 83.7 fL (80.0-94.0); MEAN PLATELET VOLUME 7.6 fl (7.4-10.4); PLATELET 294 x1000/uL (130-400); RED BLOOD CELL COUNT 3.32 mill/uL (4.7-6.1); RED CELL DISTRIBUTION WIDTH 18.7 % (11.6-14.6)
[2022-07-08 16:48] LABS: PROTHROMBIN TIME 11.2 sec (9.6-11.0)
[2022-07-08 16:52] LABS: CHLORIDE 112 mEq/L (98-107)
[2022-07-08 17:03] LABS: TOTAL IRON BINDING CAPACITY 337 ug/dL (250-450)
[2022-07-08 17:22] LABS: PLATELET ESTIMATE NORMAL
[2022-07-08 17:24] LABS: FERRITIN 28 ng/mL (22-322)
[2022-07-08 17:29] LABS: VITAMIN B12 SERUM 507 pg/mL (211-911)
[2022-07-08 17:35] LABS: HEPATITIS B SURFACE ANTIGEN NEGATIVE
[2022-07-08] MEDS: MIRTAZAPINE 15MG TABLET PO SCH (22:15)
[2022-07-09] VITALS: BP 155/76
[2022-07-09] MEDS: SUCRALFATE 1 G/10 ML UDC PO SCH ×5 (00:45→23:57)
[2022-07-09 04:00] VITALS: BP 140/72
[2022-07-09] MEDS: PANTOPRAZOLE SODIUM 40 MG/VIAL IV SCH ×2 (06:22→17:15)
[2022-07-09] MEDS: SODIUM CHLORIDE 0.9% 1,000 ML IV SCH ×2 (06:22→17:28)
[2022-07-09 07:56] LABS: HEMATOCRIT. 28.8 % (42.0-52.0); HEMOGLOBIN. 9.5 g/dL (14.0-18.0); MEAN CORPUSCULAR HEMOGLOBIN 27.9 pg (28.0-32.0); MEAN CORPUSCULAR VOLUME 84.5 fL (80.0-94.0); MEAN PLATELET VOLUME 7.5 fl (7.4-10.4); PLATELET 298 x1000/uL (130-400); RED BLOOD CELL COUNT 3.41 mill/uL (4.7-6.1); RED CELL DISTRIBUTION WIDTH 19.5 % (11.6-14.6)
[2022-07-09 08:00] VITALS: BP 141/79
[2022-07-09] MEDS: GABAPENTIN 300MG CAPSULE PO SCH ×2 (08:53→17:15)
[2022-07-09] MEDS: CITRIC ACID/SODIUM CITRATE SOLN 30ML UDC PO SCH ×3 (08:53→17:14)
[2022-07-09] MEDS: OCTREOTIDE 1,000 MCG in SODIUM CHLORIDE 0.9% 98 ML IV SCH (08:53)
[2022-07-09] MEDS: TAMSULOSIN HCL 0.4MG SR CAPSULE PO SCH (08:54)
[2022-07-09] MEDS: PROPRANOLOL HCL 10MG TABLET PO SCH ×2 (08:54→17:15)
[2022-07-09 12:00] VITALS: BP 134/68
[2022-07-09] MEDS ORDERED: LACTULOSE 20G/30ML UDC PO NR (12:30)
[2022-07-09 13:20] LABS: PLATELET ESTIMATE NORMAL
[2022-07-09 16:00] VITALS: BP 135/85
[2022-07-09] MEDS: FERROUS SULFATE 325MG TABLET PO SCH (17:15)
[2022-07-09] MEDS: ASCORBIC ACID 500 MG TABLET PO SCH (17:28)
[2022-07-09 18:25] LABS: HEMOGLOBIN 8.4 g/dL (14.0-18.0)
[2022-07-09 20:00] VITALS: BP 142/67
[2022-07-09] MEDS: MIRTAZAPINE 15MG TABLET PO SCH (21:26)
[2022-07-10] VITALS (13 sets, daily range): BP systolic 120–161; BP diastolic 63–79
[2022-07-10 01:30] LABS: HEMATOCRIT 25.7 % (42.0-52.0); HEMOGLOBIN 8.5 g/dL (14.0-18.0)
[2022-07-10] MEDS: OCTREOTIDE 1,000 MCG in SODIUM CHLORIDE 0.9% 98 ML IV SCH ×2 (03:42→22:45)
[2022-07-10] MEDS: PANTOPRAZOLE SODIUM 40 MG/VIAL IV SCH ×2 (05:38→19:14)
[2022-07-10] MEDS: SUCRALFATE 1 G/10 ML UDC PO SCH ×4 (05:38→22:45)
[2022-07-10 06:23] LABS: CHLORIDE 110 mEq/L (98-107); INR 1.1; PROTHROMBIN TIME 11.6 sec (9.6-11.0)
[2022-07-10 06:28] LABS: HEMATOCRIT. 26.2 % (42.0-52.0); HEMOGLOBIN. 8.6 g/dL (14.0-18.0); MEAN CORPUSCULAR HEMOGLOBIN 27.2 pg (28.0-32.0); MEAN CORPUSCULAR VOLUME 83.2 fL (80.0-94.0); MEAN PLATELET VOLUME 7.9 fl (7.4-10.4); PLATELET 291 x1000/uL (130-400); RED BLOOD CELL COUNT 3.15 mill/uL (4.7-6.1); RED CELL DISTRIBUTION WIDTH 20.2 % (11.6-14.6)
[2022-07-10] MEDS ORDERED: POTASSIUM CHLORIDE INJ 40 MEQ in DEXT 5% WATER 500 ML IV ONE (07:15)
[2022-07-10] MEDS: ASCORBIC ACID 500 MG TABLET PO SCH ×2 (09:00→19:14)
[2022-07-10] MEDS: PROPRANOLOL HCL 10MG TABLET PO SCH ×2 (09:00→19:00)
[2022-07-10] MEDS: TAMSULOSIN HCL 0.4MG SR CAPSULE PO SCH (09:00)
[2022-07-10] MEDS: GABAPENTIN 300MG CAPSULE PO SCH ×2 (09:00→19:14)
[2022-07-10] MEDS: CITRIC ACID/SODIUM CITRATE SOLN 30ML UDC PO SCH ×3 (09:00→19:00)
[2022-07-10] MEDS: FERROUS SULFATE 325MG TABLET PO SCH ×2 (09:00→17:00)
[2022-07-10] MEDS: SODIUM CHLORIDE 0.9% 1,000 ML IV SCH ×2 (09:07→22:46)
[2022-07-10 13:04] LABS: HEMATOCRIT 19.5 % (42.0-52.0); HEMOGLOBIN 5.5 g/dL (14.0-18.0)
[2022-07-10 13:46] LABS: NUCLEATED RED BLOOD CELLS 1 /100 WBC; PLATELET ESTIMATE NORMAL
[2022-07-10] MEDS ORDERED: OCTREOTIDE 1,000 MCG in SODIUM CHLORIDE 0.9% 98 ML IV SCH (17:00)
[2022-07-10 19:11] LABS: CANCER ANTIGEN 125 61.2 U/mL (Not Estab.)
[2022-07-10] MEDS: MIRTAZAPINE 15MG TABLET PO SCH (22:45)
[2022-07-11] VITALS: BP 157/73
[2022-07-11 00:50] VITALS: BP 150/79
[2022-07-11 04:00] VITALS: BP 155/81
[2022-07-11] MEDS: PANTOPRAZOLE SODIUM 40 MG/VIAL IV SCH ×2 (05:55→18:24)
[2022-07-11] MEDS: SUCRALFATE 1 G/10 ML UDC PO SCH ×3 (05:55→18:30)
[2022-07-11 06:36] LABS: HEMATOCRIT. 34.5 % (42.0-52.0); HEMOGLOBIN. 11.5 g/dL (14.0-18.0); MEAN CORPUSCULAR HEMOGLOBIN 27.2 pg (28.0-32.0); MEAN CORPUSCULAR VOLUME 81.6 fL (80.0-94.0); MEAN PLATELET VOLUME 7.8 fl (7.4-10.4); PLATELET 283 x1000/uL (130-400); RED BLOOD CELL COUNT 4.23 mill/uL (4.7-6.1); RED CELL DISTRIBUTION WIDTH 18.7 % (11.6-14.6)
[2022-07-11 06:45] LABS: INR 1.1
[2022-07-11 06:48] LABS: CHLORIDE 106 mEq/L (98-107)
[2022-07-11 08:00] VITALS: BP 157/70
[2022-07-11] MEDS: PROPRANOLOL HCL 10MG TABLET PO SCH ×2 (09:00→18:25)
[2022-07-11] MEDS: CITRIC ACID/SODIUM CITRATE SOLN 30ML UDC PO SCH ×3 (09:00→18:24)
[2022-07-11] MEDS: GABAPENTIN 300MG CAPSULE PO SCH ×2 (09:00→18:24)
[2022-07-11] MEDS: TAMSULOSIN HCL 0.4MG SR CAPSULE PO SCH (09:00)
[2022-07-11] MEDS: FERROUS SULFATE 325MG TABLET PO SCH ×2 (09:00→18:25)
[2022-07-11] MEDS: ASCORBIC ACID 500 MG TABLET PO SCH ×2 (09:00→18:25)
[2022-07-11 09:26] LABS: PLATELET ESTIMATE NORMAL
[2022-07-11] MEDS: SODIUM CHLORIDE 0.9% 1,000 ML IV SCH (10:49)
[2022-07-11] MEDS ORDERED: KCL 20MEQ/100ML PREMIX 100 ML IV NR (11:00)
[2022-07-11 12:00] VITALS: BP 146/73
[2022-07-11] MEDS ORDERED: PROPOFOL 200MG/20ML VIAL IV ONE (15:52)
[2022-07-11] MEDS: OCTREOTIDE 1,000 MCG in SODIUM CHLORIDE 0.9% 98 ML IV SCH (18:25)
[2022-07-11 20:00] VITALS: BP 111/81
[2022-07-11] MEDS: MIRTAZAPINE 15MG TABLET PO SCH (20:20)
[2022-07-12] VITALS: BP 170/82
[2022-07-12] MEDS: SUCRALFATE 1 G/10 ML UDC PO SCH ×5 (00:03→23:28)
[2022-07-12] MEDS ORDERED: CLONIDINE 0.1MG TABLET PO PRN (00:15)
[2022-07-12] MEDS ORDERED: AMLODIPINE 10MG TABLET PO NR (00:15)
[2022-07-12 04:00] VITALS: BP 99/69
[2022-07-12] MEDS: PANTOPRAZOLE SODIUM 40 MG/VIAL IV SCH ×2 (05:49→17:19)
[2022-07-12] MEDS: SODIUM CHLORIDE 0.9% 1,000 ML IV SCH ×2 (05:50→13:39)
[2022-07-12 08:00] VITALS: BP 139/70
[2022-07-12] MEDS: CITRIC ACID/SODIUM CITRATE SOLN 30ML UDC PO SCH ×3 (08:55→17:19)
[2022-07-12] MEDS: ASCORBIC ACID 500 MG TABLET PO SCH ×2 (08:55→17:21)
[2022-07-12] MEDS: PROPRANOLOL HCL 10MG TABLET PO SCH ×2 (08:55→17:19)
[2022-07-12] MEDS: TAMSULOSIN HCL 0.4MG SR CAPSULE PO SCH (08:55)
[2022-07-12] MEDS: GABAPENTIN 300MG CAPSULE PO SCH ×2 (08:55→17:19)
[2022-07-12] MEDS: FERROUS SULFATE 325MG TABLET PO SCH ×2 (08:56→17:19)
[2022-07-12] MEDS: AMLODIPINE 10MG TABLET PO SCH (08:56)
[2022-07-12 12:00] VITALS: BP 146/72
[2022-07-12 13:00] LABS: CHLORIDE 107 mEq/L (98-107)
[2022-07-12] MEDS: OCTREOTIDE 1,000 MCG in SODIUM CHLORIDE 0.9% 98 ML IV SCH (13:38)
[2022-07-12 16:00] VITALS: BP 131/68
[2022-07-12 20:00] VITALS: BP 146/66
[2022-07-12 20:06] LABS: HEMATOCRIT. 39.3 % (42.0-52.0); HEMOGLOBIN. 12.9 g/dL (14.0-18.0); MEAN CORPUSCULAR VOLUME 82.1 fL (80.0-94.0); MEAN PLATELET VOLUME 7.6 fl (7.4-10.4); PLATELET 370 x1000/uL (130-400); RED BLOOD CELL COUNT 4.79 mill/uL (4.7-6.1); RED CELL DISTRIBUTION WIDTH 19.1 % (11.6-14.6)
[2022-07-12] MEDS: MIRTAZAPINE 15MG TABLET PO SCH (21:35)
[2022-07-12 23:11] LABS: PLATELET ESTIMATE NORMAL
[2022-07-13] VITALS: BP 153/96
[2022-07-13 04:00] VITALS: BP 168/80
[2022-07-13] MEDS: SUCRALFATE 1 G/10 ML UDC PO SCH ×3 (05:03→18:05)
[2022-07-13] MEDS: PANTOPRAZOLE SODIUM 40 MG/VIAL IV SCH ×2 (05:03→18:05)
[2022-07-13 07:53] LABS: HEMATOCRIT. 34.3 % (42.0-52.0); HEMOGLOBIN. 11.6 g/dL (14.0-18.0); MEAN CORPUSCULAR HEMOGLOBIN 27.5 pg (28.0-32.0); MEAN CORPUSCULAR VOLUME 81.3 fL (80.0-94.0); MEAN PLATELET VOLUME 7.7 fl (7.4-10.4); PLATELET 340 x1000/uL (130-400); RED BLOOD CELL COUNT 4.22 mill/uL (4.7-6.1); RED CELL DISTRIBUTION WIDTH 18.6 % (11.6-14.6)
[2022-07-13 08:00] VITALS: BP 143/77
[2022-07-13 08:29] LABS: CHLORIDE 107 mEq/L (98-107)
[2022-07-13] MEDS: GABAPENTIN 300MG CAPSULE PO SCH ×2 (08:57→18:06)
[2022-07-13] MEDS: PROPRANOLOL HCL 10MG TABLET PO SCH ×2 (08:57→18:06)
[2022-07-13] MEDS: FERROUS SULFATE 325MG TABLET PO SCH ×2 (08:57→18:06)
[2022-07-13] MEDS: TAMSULOSIN HCL 0.4MG SR CAPSULE PO SCH (08:57)
[2022-07-13] MEDS: ASCORBIC ACID 500 MG TABLET PO SCH ×2 (08:58→17:00)
[2022-07-13] MEDS: AMLODIPINE 10MG TABLET PO SCH (08:58)
[2022-07-13] MEDS: CITRIC ACID/SODIUM CITRATE SOLN 30ML UDC PO SCH ×3 (10:33→18:05)
[2022-07-13] MEDS: OCTREOTIDE 1,000 MCG in SODIUM CHLORIDE 0.9% 98 ML IV SCH (10:33)
[2022-07-13] MEDS: SODIUM CHLORIDE 0.9% 1,000 ML IV SCH ×2 (10:35→18:24)
[2022-07-13] MEDS ORDERED: POTASSIUM CHLORIDE 20MEQ/PACKET PO NR (11:30)
[2022-07-13 12:00] VITALS: BP 126/67
[2022-07-13 16:00] VITALS: BP 124/62
[2022-07-13 17:06] LABS: PLATELET ESTIMATE NORMAL
[2022-07-13 20:00] VITALS: BP 137/84
[2022-07-13] MEDS: MIRTAZAPINE 15MG TABLET PO SCH (21:43)
[2022-07-14] VITALS: BP 139/73
[2022-07-14] MEDS: SUCRALFATE 1 G/10 ML UDC PO SCH ×3 (01:51→11:54)
[2022-07-14 04:00] VITALS: BP 145/78
[2022-07-14] MEDS: PANTOPRAZOLE SODIUM 40 MG/VIAL IV SCH (06:00)
[2022-07-14] MEDS: SODIUM CHLORIDE 0.9% 1,000 ML IV SCH (06:02)
[2022-07-14] MEDS: OCTREOTIDE 1,000 MCG in SODIUM CHLORIDE 0.9% 98 ML IV SCH (06:02)
[2022-07-14 06:28] VITALS: BP 145/78
[2022-07-14 08:33] VITALS: BP 119/71
[2022-07-14] MEDS: AMLODIPINE 10MG TABLET PO SCH (09:00)
[2022-07-14] MEDS: TAMSULOSIN HCL 0.4MG SR CAPSULE PO SCH (09:00)
[2022-07-14] MEDS: FERROUS SULFATE 325MG TABLET PO SCH (09:01)
[2022-07-14] MEDS: ASCORBIC ACID 500 MG TABLET PO SCH (09:01)
[2022-07-14] MEDS: GABAPENTIN 300MG CAPSULE PO SCH (09:02)
[2022-07-14] MEDS: PROPRANOLOL HCL 10MG TABLET PO SCH (09:02)
[2022-07-14] MEDS: CITRIC ACID/SODIUM CITRATE SOLN 30ML UDC PO SCH ×2 (09:04→11:54)
[2022-07-14 09:13] LABS: HEMATOCRIT. 32.8 % (42.0-52.0); HEMOGLOBIN. 11.1 g/dL (14.0-18.0); MEAN CORPUSCULAR HEMOGLOBIN 27.4 pg (28.0-32.0); MEAN CORPUSCULAR VOLUME 81.3 fL (80.0-94.0); MEAN PLATELET VOLUME 7.8 fl (7.4-10.4); PLATELET 316 x1000/uL (130-400); RED BLOOD CELL COUNT 4.04 mill/uL (4.7-6.1); RED CELL DISTRIBUTION WIDTH 18.9 % (11.6-14.6)
[2022-07-14 09:21] LABS: CHLORIDE 105 mEq/L (98-107)
[2022-07-14 11:57] VITALS: BP 129/71
[2022-07-14 16:22] LABS: PLATELET ESTIMATE NORMAL
== END 2022-07-14 13:00 | disposition home health service (06) | DRG 280 ==
LOC: ER 21:22 → 7EST 07-07 02:36 → EDBEDREQSVC 07-07 02:43 → EDBEDREQTM 07-07 03:00
PROVIDERS: ADMIT Internal Medicine; ATTEND Internal Medicine
PROC: 30233N1 Transfusion of Nonautologous Red Blood Cells into Peripheral Vein, Percutaneous Approach (ICD-10-PCS; principal; 2022-07-07)
PROC: 0DB78ZX Excision of Stomach, Pylorus, Via Natural or Artificial Opening Endoscopic, Diagnostic (ICD-10-PCS; 2022-07-11)
PROC: 06L38CZ Occlusion of Esophageal Vein with Extraluminal Device, Via Natural or Artificial Opening Endoscopic (ICD-10-PCS; 2022-07-11)
DX: K70.31 Alcoholic cirrhosis of liver with ascites (principal); I85.11 Secondary esophageal varices with bleeding; N17.9 Acute kidney failure, unspecified; K31.5 Obstruction of duodenum; K76.6 Portal hypertension; M48.04 Spinal stenosis, thoracic region; K83.8 Other specified diseases of biliary tract; M84.48XA Pathological fracture, other site, initial encounter for fracture; R64 Cachexia; D50.0 Iron deficiency anemia secondary to blood loss (chronic); K86.1 Other chronic pancreatitis; N18.9 Chronic kidney disease, unspecified; Z68.1 Body mass index [BMI] 19.9 or less, adult; Z96.642 Presence of left artificial hip joint; I12.9 Hypertensive chronic kidney disease with stage 1 through stage 4 chronic kidney disease, or unspecified chronic kidney disease; N39.0 Urinary tract infection, site not specified; R59.0 Localized enlarged lymph nodes; Z20.822 Contact with and (suspected) exposure to COVID-19; K44.9 Diaphragmatic hernia without obstruction or gangrene; F17.210 Nicotine dependence, cigarettes, uncomplicated; K31.89 Other diseases of stomach and duodenum; N40.0 Benign prostatic hyperplasia without lower urinary tract symptoms; Z87.19 Personal history of other diseases of the digestive system
CPT/HCPCS: 36415; 71045; 71250; 72141; 72146; 72148; 74177; 76700; 80048; 80053; 80076; 80305; 80320; 81003; 82105; 82140; 82270; 82378; 82607; 82728; 82746; 83540; 83550; 83880; 84153; 84484; 85014; 85018; 85025; 85044; 86301; 86304; 86705; 86709; 86803; 86850; 86900; 86920; 87340; 87426; 88305; 93005; 93970; 99291; C1893; C9113; J2270; J2354; J2704; J3480; J7030; J7050; J7060; P9016; Q9967; G0103; G0480